=== PATIENT | female | born 1970 | race Caucasian/White ===

== ENCOUNTER 2018-10-31 08:09 | Day surgery (SDC) | payer MEDICARE ==
[~2018-10-31] VITALS: Ht 152.4 cm; Wt 61.8 kg
[~2018-10-31 08:09] MED LIST: 0.9% SODIUM CHLORIDE 10 ML SYRINGE IVP PRN
[2018-10-31] MEDS ORDERED: METOPROLOL TARTRATE 50 MG TABLET PO ONE (08:30)
[2018-10-31 09:12] LABS: ANION GAP 9 mmol/L (8-16); CALCIUM, TOTAL 8.6 mg/dL (8.8-10.5); CARBON DIOXIDE 26 mmol/L (22-29); CHLORIDE 106 mmol/L (98-107); CREATININE 0.76 mg/dL (0.60-1.30); GLOMERULAR FILTR. RATE CALC > 60 mL/min (>60); GLUCOSE,RANDOM 89 mg/dL (70-110); POTASSIUM 4.1 mmol/L (3.5-5.1); SODIUM SERUM 141 mmol/L (136-145); UREA NITROGEN, BLOOD 17 mg/dL (7-18)
[2018-10-31] MEDS ORDERED: IOVERSOL 350 MG/ML 150 ML VIAL ONE (09:54)
[2018-10-31] MEDS ORDERED: SODIUM CHLORIDE 0.9% 100 ML ONE (09:54)
[2018-10-31] MEDS ORDERED: NITROGLYCERIN 400 MCG/SUBLINGUAL SPRAY 4.9 GM BOTTLE SL ONE ×2 (09:54→10:13)
[2018-10-31] MEDS ORDERED: METOPROLOL TARTRATE 5 MG/5 ML VIAL ONE (09:54)
== END 2018-10-31 10:50 | disposition home or self-care (01) ==
LOC: SURGERY 08:09
PROVIDERS: ATTEND Internal Medicine Cardiovascular Disease
DX: I25.10 Atherosclerotic heart disease of native coronary artery without angina pectoris (principal); I25.3 Aneurysm of heart; I50.9 Heart failure, unspecified; I34.0 Nonrheumatic mitral (valve) insufficiency; M79.7 Fibromyalgia; F41.8 Other specified anxiety disorders; Z72.89 Other problems related to lifestyle; Z98.890 Other specified postprocedural states
CPT/HCPCS: 36415; 75574; 80048; J7050; Q9967; J3490